=== PATIENT | male | born 1955 | race Caucasian/White ===

== ENCOUNTER 2020-09-05 16:14 | Emergency (ER) | payer OTHER ==
[2020-09-05] MEDS ORDERED: PHENYLEPHRINE HCL 10 MG/1 ML SINGLE DOSE VIAL NR ONE (18:32)
[2020-09-05] MEDS ORDERED: PHENYLEPHRINE HCL 10 MG/1 ML SINGLE DOSE VIAL ONE (18:36)
[2020-09-05 20:11] VITALS: BP 150/76; PULSE 66; TEMP 98.3
== END 2020-09-05 20:11 | disposition home or self-care (01) ==
LOC: JER 16:14
PROC: 3E0N3GC Introduction of Other Therapeutic Substance into Male Reproductive, Percutaneous Approach (ICD-10-PCS; principal; 2020-09-05)
DX: N48.30 Priapism, unspecified (principal)
CPT/HCPCS: 99283-25